=== PATIENT | female | born 1985 | race African-American/Black ===

== ENCOUNTER 2020-07-03 20:08 | Emergency (ER) | payer OTHER ==
[2020-07-03] MEDS ORDERED: Acetaminophen 500 MG TAB ONE (20:27)
[2020-07-03] MEDS ORDERED: Aspirin 325 MG TAB ONE (20:27)
[2020-07-03 20:42] LABS: #Eosinphils 0.2 10x3/uL (0.0-0.5); #Monocytes 0.6 10x3/uL (0.0-1.1); %Basophils 0.5 % (0.0-2.0); %Eosinophils 1.9 % (0.0-6.0); %Lymphocytes 53.8 % (18.0-47.0); %Neutrophils 36.7 % (40.0-75.0); Hemoglobin 12.3 g/dL (12.0-15.5); Mean Corpuscular HGB CONC 31.7 g/dL (32.0-36.0); Mean Corpuscular Hemoglobin 28.5 pg (27.0-33.0); Mean Corpuscular Volume 89.8 fl (81.6-98.3); Mean Platelet Volume 9.8 fl (7.4-10.4); Platelet Count 297 10x3/uL (150-450); RBC Distribution Width 12.8 % (11.5-14.5); Red Blood Cell (RBC) Count 4.32 10x6/uL (3.90-5.03); White Blood Cell (WBC) Count 8.3 10x3/uL (3.5-10.5)
[2020-07-03 20:57] LABS: BHCG - Serum Negative (NEGATIVE); Pregs Control Background? CLEAR/WHITE (CLR/WHITE); Pregs Control Bar Appear? YES (CONTROL BAR)
[2020-07-03 20:58] LABS: ALT (SGPT) 14 U/L (8-55); AST (SGOT) 19 U/L (5-34); Albumin 4.7 g/dL (3.5-5.0); Alkaline Phosphatase 36 U/L (40-110); Anion Gap 18 mmol/L (10-20); BUN (Urea Nitrogen) 8 mg/dL (7.0-18.7); Bilirubin, Total 0.5 mg/dL (0.2-1.2); Calc. Creatinine Clearance 0 mL/min (70-130); Calcium 9.8 mg/dL (7.8-10.44); Carbon Dioxide 21 mmol/L (22-29); Chloride 106 mmol/L (98-107); Globulin 2.7 g/dL (2.4-3.5); Glucose 110 mg/dL (70-105); Protein, Total 7.4 g/dL (6.0-8.3); Sodium 142 mmol/L (136-145)
[2020-07-03] MEDS ORDERED: Potassium Chloride 20 MEQ TAB ONE (21:23)
[2020-07-03 22:43] LABS: Troponin I Less than 0.010 ng/mL (< 0.028)
== END 2020-07-04 00:19 | disposition home or self-care (01) ==
LOC: CSHERS 20:08
DX: R07.89 Other chest pain (principal); E87.6 Hypokalemia; Z79.82 Long term (current) use of aspirin
CPT/HCPCS: 36415; 71045; 80053; 83880; 84484; 84703; 85025; 85379; 93005